=== PATIENT | female | born 1970 | race Caucasian/White ===

== ENCOUNTER 2022-10-28 18:14 | Emergency (ER) | payer MEDICARE, OTHER ==
[2022-10-28] VITALS (7 sets, daily range): BP systolic 104–137; BP diastolic 75–100
[~2022-10-28] VITALS: Ht 154.9 cm; Wt 72.0 kg
[2022-10-28] MEDS ORDERED: DULOXETINE HYDR40 MG PO (18:36)
[2022-10-28] MEDS ORDERED: ATOMOXETINE PO (18:37)
[2022-10-28] MEDS ORDERED: TRILEPTAL150 M1 PO (18:41)
[2022-10-28] MEDS ORDERED: MINIPRESS2 M1 PO (18:41)
[2022-10-28] MEDS ORDERED: BUSPAR5 MG PO (18:43)
[2022-10-28] MEDS ORDERED: ZOLPIDEM5 M1 PO (18:44)
[2022-10-28] MEDS ORDERED: RISPERDAL0.5 MG PO (18:44)
[2022-10-28] MEDS ORDERED: FLEXERIL5 M1 PO (18:45)
[2022-10-28] MEDS ORDERED: TRAZODONE50 MG PO (18:46)
[2022-10-28 19:42] LABS: BASO% 0.3 % (0-3); EOS% 0.8 % (0-8); HEMATOCRIT 40.8 % (37.0-47.0); HEMOGLOBIN 14.2 g/dl (12.0-16.0); IMMATURE GRANULOCYTES 0.2 % (0.0-5.0); LYMPH% 25.5 % (15-41); MEAN CELL VOLUME 90.9 fL CALC (80.0-100.0); MEAN CORPUSCULAR HGB 31.6 pG CALC (26.0-32.0); MEAN CORPUSCULAR HGB CONC 34.8 g/dL CAL (32.0-36.0); NEUT# 4.28 thou/uL (2.00-7.15); NEUT% 67.2 % (42-76); RED BLOOD COUNT 4.49 mill/uL (4.20-5.60); RED CELL DISTRI WIDTH 14.4 % (11.5-15.5)
[2022-10-28 19:56] LABS: ALBUMIN 4.6 g/dL (3.2-5.0); ALKALINE PHOSPHATASE 115 u/l (38-126); ANION GAP 11 (6-22 (CALC)); BILIRUBIN, TOTAL 0.3 mg/dL (0.0-1.4); BUN 18 mg/dL (7-17); BUN/CREATININE RATIO 18 (12-20 (CALC)); CARBON DIOXIDE 30 mmol/l (22-30); CHLORIDE 103 mmol/l (95-108); GFR FOR AFR.AMER. > 60 ML/MIN (>=60 (CALC)); GFR OTHER RACES 58 ML/MIN (>=60 (CALC)); SGOT/AST 26 u/l (14-36); SODIUM 141 mmol/l (137-146); TOTAL PROTEIN 7.4 g/dL (6.3-8.2)
[2022-10-28 21:20] LABS: URINE BILIRUBIN - DIPSTICK NEGATIVE (NEGATIVE); URINE BLOOD DIPSTICK NEGATIVE (NEGATIVE); URINE COLOR YELLOW; URINE GLUCOSE - DIPSTICK NEGATIVE (NEGATIVE); URINE KETONE NEGATIVE (NEGATIVE); URINE LEUK ESTERASE NEGATIVE (NEGATIVE); URINE PH 5.5 (4.5-8.0); URINE PROTEIN - DIPSTICK NEGATIVE (NEG-TRACE); URINE SPECIFIC GRAVITY >=1.030; URINE UROBILINOGEN - DIPSTICK 0.2 E.U./dL (0.2)
[2022-10-28 21:21] LABS: URINE NITRITE - DIPSTICK NEGATIVE (Negative)
[2022-10-28] MEDS ORDERED: ATIVAN0.5 MG PO (21:58)
== END 2022-10-28 22:45 | disposition home or self-care (01) ==
LOC: ED 18:14
PROVIDERS: Emergency Medicine
DX: F41.9 Anxiety disorder, unspecified (principal); F32.A Depression, unspecified; T42.6X6A Underdosing of other antiepileptic and sedative-hypnotic drugs, initial encounter; Z91.128 Patient's intentional underdosing of medication regimen for other reason
CPT/HCPCS: J2060